=== PATIENT | female | born 1935 | race African-American/Black ===

== ENCOUNTER 2021-04-27 09:36 | Outpatient (CLI) | payer MEDICARE, BC | END 2021-04-27 09:37 | disposition home or self-care (01) | LOC: CSHCT 09:36 | PROVIDERS: ATTEND Internal Medicine Cardiovascular Disease | DX: I48.19 Other persistent atrial fibrillation (principal); Z95.818 Presence of other cardiac implants and grafts | CPT/HCPCS: 71275; 82565 ==